=== PATIENT | male | born 1945 | race Caucasian/White ===

== ENCOUNTER 2017-01-22 21:21 | Emergency (ER) | payer OTHER ==
[~2017-01-22] VITALS: Ht 175.3 cm; Wt 88.0 kg
[2017-01-22 21:26] VITALS: TEMP 36.7; Ht 175.3 cm; Wt 88.0 kg
[2017-01-22] MEDS ORDERED: SODIUM CHLORIDE 0.9% 1000ML 1,000 ML IV SCH (21:44)
[2017-01-22 22:19] LABS: BASO % 0.5 %; BASO ABS # 0.04 K/uL (0-0.2); COMPLETE YES; EOS % 1.8 %; HEMATOCRIT 38.4 % (42-52); IG% 0.4 %; LYMPH % 28.5 %; LYMPH ABS # 2.26 K/uL (1.2-3.4); MEAN CELL VOLUME 87.5 fL (80-100); MEAN CORPUSCULAR HEMOGLOBIN 28.9 pg (25-34); MEAN CORPUSCULAR HGB CONC 33.1 g/dl (32-36); MEAN PLATELET VOLUME 10.9 fL (7.4-10.4); MONO % 7.9 %; NEUT % 60.9 %; PLATELET COUNT 213 K/uL (130-400); RED BLOOD COUNT 4.39 M/uL (4.7-6.1); WHITE BLOOD COUNT 7.94 K/uL (4.8-10.8)
--- NOTE | 2017-01-22 22:29 | DIAGNOSTIC IMAGING REPORT ---
HEAD WITHOUT CONTRAST (CT) CLINICAL HISTORY: 71 years-old Male with acute strokelike symptoms. TECHNIQUE: Multiple axial CT images of the head were obtained without contrast. A dose lowering technique was utilized adhering to the principles of ALARA. CT DOSE: 712.55 mGy.cm COMPARISON: None. FINDINGS: No acute intracranial hemorrhage, midline shift, mass, large territorial ischemia or abnormal extra-axial collection. There is mild to moderate cerebral atrophy. Encephalomalacia of the right parietal lobe is noted compatible with remote infarction. The calvarium is intact. The paranasal sinuses, mastoid air cells, and middle ear cavities are clear. There is evidence of prior bilateral cataract repair. IMPRESSION: 1. No acute intracranial abnormality. 2. Mild to moderate atrophy with evidence of prior remote right parietal lobe infarction. The above report was generated using voice recognition software. It may contain grammatical, syntax or spelling errors. Electronically signed by: Andrew Ku M.D. 01/22/2017 10:28 PM Dictated Date/Time: 01/22/2017 10:25 PM
[2017-01-22 22:33] LABS: INR 1.1 (0.9-1.1); PARTIAL THROMBOPLASTIN RATIO 1.1; PROTHROMBIN TIME (PATIENT) 11.6 SECONDS (9.0-12.0)
--- NOTE | 2017-01-22 22:33 | DIAGNOSTIC IMAGING REPORT ---
CHEST ONE VIEW PORTABLE HISTORY: 71 years-old Male acute strokelike symptoms COMPARISON: None available TECHNIQUE: Portable upright AP view of the chest FINDINGS: Cardiac silhouette is mildly enlarged. There is evidence of prior median sternotomy. There is atherosclerosis of the aorta. No pneumothorax. There is mild right hemidiaphragmatic elevation with linear subsegmental left basilar opacity suggesting atelectasis or scarring. No large pleural effusion is definitely seen. No pneumothorax. The bones are grossly intact. There is fusion hardware of the lower cervical spine. IMPRESSION: 1. No acute cardiopulmonary process. 2. Mild left hemidiaphragmatic elevation with subsegmental left basilar atelectasis/scarring. The above report was generated using voice recognition software. It may contain grammatical, syntax or spelling errors. Electronically signed by: Andrew Ku M.D. 01/22/2017 10:32 PM Dictated Date/Time: 01/22/2017 10:30 PM
[2017-01-22 22:46] LABS: ALT/SGPT 33 U/L (12-78); BLOOD UREA NITROGEN 13 mg/dl (7-18); BUN/CREATININE RATIO 12.8 (10-20); CALCIUM 9.1 mg/dl (8.5-10.1); CARBON DIOXIDE 30 mmol/L (21-32); CHLORIDE 105 mmol/L (98-107); GLUCOSE 136 mg/dl (70-99)
[2017-01-22 22:50] LABS: ALKALINE PHOSPHATASE 79 U/L (45-117); POTASSIUM 4.3 mmol/L (3.5-5.1); SODIUM 144 mmol/L (136-145)
[2017-01-22 22:58] LABS: AST/SGOT 25 U/L (15-37); CKMB/CK RATIO 2.3 (0-3.0)
--- NOTE | 2017-01-22 23:03 | EMERGENCY ROOM VISIT NOTE ---
ED Visit Note First contact with patient: 21:36 This Patient was discussed with the physician seed analysis laboratory assistant, Mela Martell PA-C. The pertinent historical and physical exam findings were confirmed. I agree with the studies ordered and with the interpretations of these studies. I agree with the disposition and care plan.
[2017-01-22 23:12] VITALS: O2SAT 98
[2017-01-22] MEDS ORDERED: ASPCH81X PO (23:20)
[2017-01-22] MEDS ORDERED: LOSA50TA6 PO (23:20)
[2017-01-22] MEDS ORDERED: DILT240C51 PO (23:20)
[2017-01-22] MEDS ORDERED: SITA50TA5 PO (23:21)
[2017-01-22] MEDS ORDERED: RIVA1TAB4 PO (23:21)
[2017-01-22] MEDS ORDERED: MONT1TAB3 PO (23:21)
[2017-01-22] MEDS ORDERED: PANT40TA PO (23:21)
[2017-01-22] MEDS ORDERED: ROSU20TA PO (23:21)
[2017-01-22] MEDS ORDERED: INSDGIPEN SC (23:23)
[2017-01-22] MEDS ORDERED: NVLGI/PEN SQ (23:23)
[2017-01-23 00:14] LABS: MAGNESIUM 1.7 mg/dl (1.8-2.4)
[2017-01-23] MEDS ORDERED: GADAVIST IV PRN (00:30)
[2017-01-23 01:13] VITALS: BP 125/78; PULSE 87; O2SAT 99
--- NOTE | 2017-01-23 05:58 | EMERGENCY ROOM VISIT NOTE ---
History First contact with patient: 21:36 Chief Complaint: NEURO SYMPTOMS Stated Complaint: NUMBNESS, PAIN IN HEAD, PREVIOUS STROKE Nursing Triage Summary: patient reports heaviness of right leg starting at 1900 History of Present Illness The patient is a 71 year old male who presents to the Emergency Room with complaints of feeling off balance with increasing tingling in his left hand and left foot and scalp for the past several hours that seemed to have resolved now. Symptoms have been intermittent. 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 He is concerned he is having another one. Patient on Xarelto for A. fib in a flutter and for aortic valve replacement. Patient states he no longer has any tingling. Patient denies weakness, localized weakness, fevers, vision problems , chest pain, dyspnea, abdominal pain, neck pain, back pain, leg pain or swelling. He has traveled recently. Review of Systems See HPI for pertinent positives & negatives. A total of 10 systems reviewed and were otherwise negative. Past Medical/Surgical History Back surgery, CHF, diabetes, coronary disease, CABG, skin cancer, CVA, aortic valve replacement, hypertension, GERD, hyperlipidemia, A. fib, a flutter Social History Smoking Status: Former Smoker Smokeless Tobacco Use: No Alcohol Use: none Drug Use: none Occupation Status: retired Current/Historical Medications Scheduled Aspirin (Aspirin Chewable), 81 MG PO DAILY Diltiazem Hcl Extended Release (Taztia Xt), 240 MG PO DAILY Insulin Aspart (Novolog Flexpen), SQ AC Insulin Glargine (Lantus Solostar), 40 UNITS SC QPM Losartan Potassium (Cozaar), 50 MG PO DAILY Montelukast Sodium (Singulair), 10 MG PO DAILY Pantoprazole (Protonix), 40 MG PO DAILY Rivaroxaban (Xarelto), 20 MG PO DAILY Rosuvastatin Calcium (Crestor), 20 MG PO DAILY Sitagliptin-Metformin Hcl (Janumet), 1 TAB PO BID Allergies Coded Allergies: Amiodarone (Verified Allergy, Severe, sob, 01/22/17) Dronedarone (Verified Allergy, Severe, sob, 01/22/17) Physical Exam Vital Signs Date Time Temp Pulse Resp B/P (MAP) Pulse Ox O2 Delivery O2 Flow Rate FiO2 01/23/17 01:13 87 16 125/78 99 Room Air 01/22/17 23:13 74 16 123/71 98 Room Air 01/22/17 23:12 98 Room Air 01/22/17 21:26 36.7 69 18 118/56 96 Room Air Pain Rating (0-10): 0 Physical Exam VITALS: Vitals are noted on the nurse's note and reviewed by myself. Vital signs stable. GENERAL: Pleasant male, in no acute distress, nondiaphoretic, well-developed well-nourished. SKIN: The skin was without rashes, erythema, edema, or bruising. There is no tenting of the skin. Capillary reflex less than 2 seconds. HEAD: Normocephalic atraumatic. EARS: External auditory canals clear, tympanic membranes pearly de jesus without erythema or effusion bilaterally. EYES: Pupils equal round and reactive to light and accommodation. Conjunctivae without injection, sclerae without icterus. Extraocular movements intact. NOSE: Patent, turbinates without inflammation or discharge. MOUTH: Mucous membranes moist. Pharynx without erythema or exudate. Uvula midline. Airway patent. Tongue does not deviate. NECK: Supple without nuchal rigidity. No lymphadenopathy. No thyromegaly. Cervical spine is nontender. No JVD. HEART: Regular rate and rhythm LUNGS: Clear to auscultation bilaterally without wheezes, rales or rhonchi. No dullness to percussion. No retractions or accessory muscle use. ABDOMEN: Positive bowel sounds x 4. Normal tympanic percussion. Soft, nontender, without masses or organomegaly. Angulo sign negative. No guarding or rebound tenderness. MUSCULOSKELETAL: No muscle atrophy, erythema, or edema noted. 5 out of 5 strength throughout NEURO: Patient was alert and oriented to person place and time. Normal sensation to light and sharp touch. No focal neurological deficits. Cranial nerves II through XII grossly intact. No pronator drift. Cerebellar exam intact. Medical Decision & Procedures Laboratory Results 01/22/17 22:00 Red Blood Count 4.39, Mean Corpuscular Volume 87.5, Mean Corpuscular Hemoglobin 28.9, Mean Corpuscular Hemoglobin Concent 33.1, Mean Platelet Volume 10.9, Neutrophils (%) (Auto) 60.9, Lymphocytes (%) (Auto) 28.5, Monocytes (%) (Auto) 7.9, Eosinophils (%) (Auto) 1.8, Basophils (%) (Auto) 0.5, Neutrophils # (Auto) 4.84, Lymphocytes # (Auto) 2.26, Monocytes # (Auto) 0.63, Eosinophils # (Auto) 0.14, Basophils # (Auto) 0.04 01/22/17 22:00 Test 01/22/17 22:00 White Blood Count 7.94 K/uL (4.8-10.8) Red Blood Count 4.39 M/uL (4.7-6.1) Hemoglobin 12.7 g/dL (14.0-18.0) Hematocrit 38.4 % (42-52) Mean Corpuscular Volume 87.5 fL (80-100) Mean Corpuscular Hemoglobin 28.9 pg (25-34) Mean Corpuscular Hemoglobin Concent 33.1 g/dl (32-36) Platelet Count 213 K/uL (130-400) Mean Platelet Volume 10.9 fL (7.4-10.4) Neutrophils (%) (Auto) 60.9 % Lymphocytes (%) (Auto) 28.5 % Monocytes (%) (Auto) 7.9 % Eosinophils (%) (Auto) 1.8 % Basophils (%) (Auto) 0.5 % Neutrophils # (Auto) 4.84 K/uL (1.4-6.5) Lymphocytes # (Auto) 2.26 K/uL (1.2-3.4) Monocytes # (Auto) 0.63 K/uL (0.11-0.59) Eosinophils # (Auto) 0.14 K/uL (0-0.5) Basophils # (Auto) 0.04 K/uL (0-0.2) RDW Standard Deviation 43.9 fL (36.4-46.3) RDW Coefficient of Variation 13.7 % (11.5-14.5) Immature Granulocyte % (Auto) 0.4 % Immature Granulocyte # (Auto) 0.03 K/uL (0.00-0.02) Prothrombin Time 11.6 SECONDS (9.0-12.0) Prothromb Time International Ratio 1.1 (0.9-1.1) Activated Partial Thromboplast Time 29.7 SECONDS (21.0-31.0) Partial Thromboplastin Ratio 1.1 Anion Gap 9.0 mmol/L (3-11) Est Creatinine Clear Calc Drug Dose 75.5 ml/min Estimated GFR () 88.0 Estimated GFR (Non- 75.9 BUN/Creatinine Ratio 12.8 (10-20) Calcium Level 9.1 mg/dl (8.5-10.1) Magnesium Level 1.7 mg/dl (1.8-2.4) Total Bilirubin 0.3 mg/dl (0.2-1) Direct Bilirubin 0.1 mg/dl (0-0.2) Aspartate Amino Transf (AST/SGOT) 25 U/L (15-37) Alanine Aminotransferase (ALT/SGPT) 33 U/L (12-78) Alkaline Phosphatase 79 U/L (45-117) Total Creatine Kinase 84 U/L (39-308) Creatine Kinase MB 1.9 ng/ml (0.5-3.6) Creatine Kinase MB Ratio 2.3 (0-3.0) Troponin I < 0.015 ng/ml (0-0.045) Total Protein 7.4 gm/dl (6.4-8.2) Albumin 3.8 gm/dl (3.4-5.0) Thyroid Stimulating Hormone (TSH) 4.250 uIu/ml (0.300-4.500) ED Course Prior records/ancillary studies reviewed and summarized above. Nursing notes reviewed. Additional history obtained from family. The patient's history was concerning for weakness, headache, balance problems. Differential diagnosis: Etiologies such as metabolic, infection, hypo/hyperglycemia, electrolyte abnormalities, cardiac sources, intracerebral event, toxicologic, neurologic, as well as others were entertained. Physical examination: As above. ER treatment provided: IV Lock On reassessment the patient felt better. Diagnostics interpretation by me: ECG: Normal sinus, left axis deviation, right bundle branch block, no acute ST- T wave changes, rate of 66. Impression right bundle branch block interpreted by myself The labs revealed negative troponin, mild anemia . Imaging studies: Chest x-ray reviewed [~ rep ct add3]] HEAD WITHOUT CONTRAST (CT) CLINICAL HISTORY: 71 years-old Male with acute strokelike symptoms. TECHNIQUE: Multiple axial CT images of the head were obtained without contrast. A dose lowering technique was utilized adhering to the principles of ALARA. CT DOSE: 712.55 mGy.cm COMPARISON: None. FINDINGS: No acute intracranial hemorrhage, midline shift, mass, large territorial ischemia or abnormal extra-axial collection. There is mild to moderate cerebral atrophy. Encephalomalacia of the right parietal lobe is noted compatible with remote infarction. The calvarium is intact. The paranasal sinuses, mastoid air cells, and middle ear cavities are clear. There is evidence of prior bilateral cataract repair. IMPRESSION: 1. No acute intracranial abnormality. 2. Mild to moderate atrophy with evidence of prior remote right parietal lobe infarction. The above report was generated using voice recognition software. It may contain grammatical, syntax or spelling errors. Electronically signed by: Andrew Ku M.D. Brain MRI reviewed and read by stat radiology. Negative for acute stroke Exam and history seem consistent with balance problems that could be related to vertigo. Patient had no signs of CVA. Unremarkable imaging as above. I obtained the records from the other hospital from last month and these are unchanged of his brain MRI. Patient was neurovascularly and neurologically intact. He is well-appearing. Negative MRI of the brain and CT. He was advised follow-up this week as scheduled with the specialist or here in the ER sooner for chest pain, weakness, bowel sounds, worsening signs or symptoms or as needed. Patient was agreeable to treatment plan and pleased. By the evaluation outlined above emergent etiologies such as infection, electrolyte abnormalities, cardiac sources, intracerebral event, toxologic, neurologic, abnormalities blood glucose, metabolic, as well as others were deemed relatively unlikely. The pt informed about the findings as listed above. All questions were answered and pleased with the treatment. Return instructions were outlined and the patient was discharged in stable condition. Case reviewed with my attending Referral: The patient was referred back to primary care physician for follow-up in 2 to 3 days for a recheck of the current condition. Medical Decision As above Impression Primary Impression: Balance problems Additional Impressions: Tingling Anemia Departure Information Dispostion Home / Self-Care Condition GOOD Forms WORK / SCHOOL INSTRUCTIONS, HOME CARE DOCUMENTATION FORM, IMPORTANT VISIT INFORMATION Patient Instructions [facility], ED Transient Ischemic Attack Additional Instructions Rest and drink plenty of fluids as tolerated. Continue current medications. Return to the ER immediately for worsening or persistent balance problems, tingling, weakness, abdominal pain, vomiting, fevers, chest pains, difficulty breathing, worsening of your condition, or as needed. Follow up with your primary physician in 2-3 days for a recheck of your current condition. Problem Qualifiers
--- NOTE | 2017-01-23 06:51 | DIAGNOSTIC IMAGING REPORT ---
BRAIN COMBO CLINICAL HISTORY: 71 years-old Male presenting with off balance, left sided weakness, 3 prior CVAs. TECHNIQUE: Multisequence, multiplanar MR imaging of the brain was performed before and after the administration of intravenous contrast. IV contrast: 9 mL of Gadavist. COMPARISON: CT head from 01/22/2017. FINDINGS: Ventricles and sulci normal in size. Bilateral old cerebellar infarcts. Encephalomalacia and clearly of cysts also noted in the right parietal region consistent with chronic infarct. No mass effect or midline shift. No hemorrhage or acute territorial infarct. No extra-axial fluid collection. T2 skull base flow voids preserved. No abnormal parenchymal enhancement. Bone marrow signal intensity within the calvarium within normal limits. IMPRESSION: 1. No acute intracranial abnormality. No abnormal enhancement. 2. Chronic infarcts in the bilateral cerebellar hemispheres and right parietal region. Electronically signed by: Irving Garcia M.D. 01/23/2017 6:50 AM Dictated Date/Time: 01/23/2017 6:47 AM
== END 2017-01-23 01:49 | disposition home or self-care (01) ==
LOC: C.EDB 21:22 → C.EDC 01-23 01:49
DX: M26.56 Non-working side interference (principal); R20.2 Paresthesia of skin; D64.9 Anemia, unspecified; I50.9 Heart failure, unspecified; E11.9 Type 2 diabetes mellitus without complications; I25.10 Atherosclerotic heart disease of native coronary artery without angina pectoris; C44.90 Unspecified malignant neoplasm of skin, unspecified; I63.9 Cerebral infarction, unspecified; I10 Essential (primary) hypertension; K21.9 Gastro-esophageal reflux disease without esophagitis; E78.5 Hyperlipidemia, unspecified; I48.91 Unspecified atrial fibrillation